=== PATIENT | female | born 1945 | race Caucasian/White ===

== ENCOUNTER → 2021-07-21 12:19 | Outpatient (CLI) | payer MEDICARE, OTHER, SELFPAY ==
[2021-07-21 19:59] LABS: Alanine Aminotransferase 37 IU/L (<35); Albumin 4.5 g/dL (3.5-5.0); Albumin Globulin Ratio 1.5 (1.0-2.8); Alkaline Phosphatase 124 U/L (38-126); Aspartate Aminotransferase 35 IU/L (14-36); BUN Creatinine Ratio 20.5 (6-22); Blood Urea Nitrogen 15 mg/dL (7-17); Calcium 8.8 mg/dL (8.4-10.2); Carbon Dioxide 23 mmol/L (22-32); Chloride 106 mmol/L (98-107); Cholesterol 243 mg/dL (140-199); Estimated Glomerular Filt Rate > 60 mL/min (>60); Glucose 100 mg/dL (80-110); HDL Cholesterol 50 mg/dL (40-60); LDL Cholesterol Calculated 165 mg/dL (<100); Potassium 4.5 mmol/L (3.4-5.1); Sodium 140 mmol/L (137-145); Total Protein 7.5 g/dL (6.3-8.2); Triglycerides 140 mg/dL (35-150)
[2021-07-21 20:08] LABS: T4 Total Thyroxine 9.94 ug/dL (5.5-11.0)
[2021-07-21 20:12] LABS: Add Manual Diff / Slide Review NO; Basophils Absolute Auto 100 /uL (0-100); Basophils Percent Auto 1.2 % (0-2); Eosinophils Absolute Auto 100 /uL (0-450); Eosinophils Percent Auto 1.1 % (2-4); Hematocrit 47.8 % (36-46); Hemoglobin 16.1 g/dL (12.0-16.0); Lymphocytes Absolute Auto 2200 /uL (1100-4500); Lymphocytes Percent Auto 22.3 % (25-40); Mean Corpuscular HGB Conc 33.7 % (30-36); Mean Corpuscular Hemoglobin 28.6 PG (26-34); Mean Corpuscular Volume 84.9 fL (80-100); Monocytes Absolute Auto 700 /uL (0-900); Monocytes Percent Auto 7.6 % (3-14); Neutrophils Absolute Auto 6700 /uL (1500-7000); Neutrophils Percent Auto 67.8 % (50-75); Platelet Count 291 X10^3/uL (150-400); Red Blood Cell Count 5.62 X10^6/uL (4.0-5.2); Red Cell Distribution Width 15.5 % (11.6-14.8); White Blood Cell Count 9.9 X10^3/uL (4.5-11.0)
[2021-07-21 21:03] LABS: HEMOLYSIS 17 (0-50); Vitamin B12 445 pg/mL (239-931)
== END ==
PROVIDERS: Psychiatry & Neurology Neurology; Family Provider Family Medicine; PCP Family Medicine; Visit Provider Family Medicine
DX: Z79.899 Other long term (current) drug therapy (principal); G31.84 Mild cognitive impairment of uncertain or unknown etiology; Z13.220 Encounter for screening for lipoid disorders; D64.9 Anemia, unspecified
CPT/HCPCS: 80053; 80061; 82607; 84436; 84443; 85025

== ENCOUNTER → 2024-01-15 16:08 | Outpatient (CLI) | payer MEDICARE, OTHER, SELFPAY | PROVIDERS: Family Provider Family Medicine; PCP Family Medicine; Visit Provider Family Medicine | DX: R39.89 Other symptoms and signs involving the genitourinary system (principal); N76.0 Acute vaginitis; B37.31 Acute candidiasis of vulva and vagina; R30.0 Dysuria | CPT/HCPCS: 87077; 87086; 87186 ==

== ENCOUNTER → 2024-01-24 13:34 | Outpatient (CLI) | payer MEDICARE, OTHER, SELFPAY ==
[2024-01-24 20:37] LABS: Add Manual Diff / Slide Review NO; Basophils Absolute Auto 100 /uL (0-100); Basophils Percent Auto 0.6 % (0-2); Eosinophils Absolute Auto 100 /uL (0-450); Eosinophils Percent Auto 1.2 % (2-4); Hematocrit 47.9 % (36-46); Hemoglobin 15.8 g/dL (12.0-16.0); Lymphocytes Absolute Auto 2500 /uL (1100-4500); Lymphocytes Percent Auto 27.8 % (25-40); Mean Corpuscular Hemoglobin 28.8 PG (26-34); Mean Corpuscular Volume 87.2 fL (80-100); Monocytes Absolute Auto 800 /uL (0-900); Monocytes Percent Auto 9.2 % (3-14); Neutrophils Absolute Auto 5600 /uL (1500-7000); Neutrophils Percent Auto 61.2 % (50-75); Platelet Count 341 X10^3/uL (150-400); Red Blood Cell Count 5.49 X10^6/uL (4.0-5.2); Red Cell Distribution Width 15.3 % (11.6-14.8); White Blood Cell Count 9.1 X10^3/uL (4.5-11.0)
[2024-01-24 20:46] LABS: Alanine Aminotransferase 33 IU/L (<35); Albumin 4.1 g/dL (3.5-5.0); Albumin Globulin Ratio 1.3 (1.0-2.8); Alkaline Phosphatase 108 U/L (38-126); Aspartate Aminotransferase 35 IU/L (14-36); Bilirubin Total 0.8 mg/dL (0.2-1.3); Blood Urea Nitrogen 16 mg/dL (7-17); Calcium 9.3 mg/dL (8.4-10.2); Carbon Dioxide 21 mmol/L (22-32); Chloride 108 mmol/L (98-107); Estimated Glomerular Filt Rate 53 mL/min (>60); Globulin 3.1 g/dL (1.7-4.1); Glucose 101 mg/dL (80-110); HEMOLYSIS 34 (0-50); Hemoglobin A1C% w Est Avg Glu 5.3 % (4.0-6.0); Potassium 4.2 mmol/L (3.4-5.1); Sodium 138 mmol/L (137-145); Total Protein 7.2 g/dL (6.3-8.2)
[2024-01-24 21:33] LABS: Vitamin B12 307 pg/mL (239-931)
== END ==
PROVIDERS: Family Provider Family Medicine; PCP Family Medicine; Visit Provider Family Medicine
DX: G31.09 Other frontotemporal neurocognitive disorder (principal); Z13.1 Encounter for screening for diabetes mellitus; R06.82 Tachypnea, not elsewhere classified; Z13.0 Encounter for screening for diseases of the blood and blood-forming organs and certain disorders involving the immune mechanism; F02.80 Dementia in other diseases classified elsewhere, unspecified severity, without behavioral disturbance, psychotic disturbance, mood disturbance, and anxiety; R05.9 Cough, unspecified; B37.31 Acute candidiasis of vulva and vagina; D75.1 Secondary polycythemia
CPT/HCPCS: 80053; 82607; 83036; 84443; 85025